=== PATIENT | male | born 1985 | race Caucasian/White ===

== ENCOUNTER 2017-01-03 05:35 | Emergency (ER) | payer OTHER ==
--- NOTE | ~2017-01-03 | CR72 ---
[facility] A Service of [facility] & [facility] RADIOLOGY TEXT RESULTS PATIENT: LOU GUERRA JR LOCATION: [facility] : 87 UNIT #: [id number] AGE: [address]: Manuel Lua MD SEX: M ORDER DR: [id number] [facility] [address] [place], [place] [address] [id number] MR#: [id number] Acc #: [id number] NAME: LOU GUERRA JR : 1985 SEX: M STUDY DATE/TIME: 01/03/2017 6:30 UNIT: [facility] ROOM: STUDY DESCRIPTION: CR Chest Single View Portable Attending Physician: Manuel Lua M.D. Ordering Physician: Manuel Lua M.D. Primary Care Physician: Porsche Suarez A.P.R.N. MEDICAL IMAGING REPORT This report is preliminary unless electronic signature is present EXAM Portable chest, 01/03/2017 COMPARISON 03/05/2015 CLINICAL HISTORY Chest pain and short of air since this morning. FINDINGS No consolidation or effusion or pneumothorax. The heart size and pulmonary vascularity are within normal limits given inspiratory effort. No acute abnormality. Dictated by... Barry Norris M.D. THIS IS AN ELECTRONICALLY VERIFIED REPORT Barry Norris M.D. at 01/03/2017 2:12 PM LAWRENCE/birgit TD: 01/03/2017 08:07 JOB #: [id number] MEDICAL IMAGING REPORT Page 1 of 1 COPY
--- NOTE | ~2017-01-03 | EKG ---
PATIENT: LOU GUERRA UNIT #: [id number] Ventricular Rate: 100 BPM Atrial Rate: 100 BPM P-R Interval: 150 ms QRS Duration: 94 ms Q-T Interval: 352 ms QTC Calculation(Bezet): 454 ms P Newton: 71 degrees Calculated R Newton: -31 degrees Calculated T Newton: 60 degrees Diagnosis Line: Normal sinus rhythm Diagnosis Line: Left axis deviation Diagnosis Line: Abnormal ECG Diagnosis Line: No previous ECGs available Diagnosis Line: Confirmed by ELIESER FANG MD ([id number]) on 01/05/2017 Diagnosis Line: 4:20:52 PM INTERPRETING MD: ANNALISA COON
[~2017-01-03 05:35] MED LIST: AUGMENTIN PO; CLEOCIN150 M1 PO; FLONASE 0.05% N16 GM NS; INDOMETHACIN25 MG PO; NAPROSYN500 MG PO; PREDNISONE10 MG/DOSE PO
[2017-01-03 06:30] LABS: POC - CKMB <1.0 ng/mL (0.0-7.9); POC - TROPONIN <0.05 ng/mL (<=0.05)
== END 2017-01-03 06:58 | disposition home or self-care (01) ==
LOC: CED 05:35
PROVIDERS: Emergency Medicine
DX: R07.9 Chest pain, unspecified (principal); Z76.0 Encounter for issue of repeat prescription; G47.30 Sleep apnea, unspecified; F17.200 Nicotine dependence, unspecified, uncomplicated; Z88.0 Allergy status to penicillin
CPT/HCPCS: 36415; 71010; 82553; 84484; 93005; 99284